=== PATIENT | male | born 1965 | race Caucasian/White ===

== ENCOUNTER → 2016-05-14 | Outpatient (CLI) | payer MEDICAID ==
[2016-05-14 08:41] LABS: HEMOGLOBIN 15.5 g/dL (14.1-18.0); LYMPH # 2.2 K/mm3 (0.7-4.5); LYMPH % 27.7 % (10-50)
[2016-05-14 09:46] LABS: BUN 13 mg/dL (7-18)
[2016-05-14 09:48] LABS: GFR (ESTIMATED) 89 ML/MIN (>60)
== END ==
LOC: LAB 08:25
PROVIDERS: Psychiatry & Neurology Neurology
DX: F95.9 Tic disorder, unspecified (principal); Z79.899 Other long term (current) drug therapy